=== PATIENT | male | born 1960 | race American Indian/Alaskan Native ===

== ENCOUNTER 2021-04-25 02:54 | Inpatient (IN) | payer OTHER ==
--- NOTE | 2021-04-25 04:04 | Emergency Department Report ---
HPI - General Time Seen by Provider: 04/25/21 03:23 - HPI HPI: Room 24 The patient is a 60-year-old male present with chief complaint of chest pain. Patient states over the past 3 days he has had intermittent substernal chest pain yesterday and the day before it resolved quickly. The patient states tonight the pain returned awakening him from sleep. Patient is sharp and co nstant in nature. Patient denies shortness of breath but admits to diaphoresis and nausea without vomiting. Patient currently gives his pain a score of 9- 10/10. Patient states his last stress test occurred over 10 years ago but has never had a cardiac catheterization. Patient denies any recent long car trip. 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-minutes ED Past Medical Hx - Past Medical History Hx Hypertension: Yes - Surgical History Additional Surgical History: Left eye pterygium - Family History Family history: no significant - Social History Smoking Status: Current Every Day Smoker (1/2 pack/day) Substance Use Type: None (Denies illicit drug use), Alcohol (Occasional) ED Review of Systems ROS: Stated complaint: CHEST PAINS Other details as noted in HPI Constitutional: diaphoresis Eyes: denies: eye pain ENT: denies: throat pain Respiratory: denies: shortness of breath Cardiovascular: chest pain Endocrine: no symptoms reported Gastrointestinal: nausea. denies: vomiting Genitourinary: denies: dysuria Musculoskeletal: denies: back pain Neurological: denies: headache Physical Exam - Physical Exam Physical Exam: GENERAL: The patient is well-developed well-nourished male lying on stretcher appearing to be in moderate discomfort. [] HEENT: Normocephalic. Atraumatic. Extraocular motions are intact. Patient has moist mucous membranes. NECK: Supple. Trachea mid CHEST/LUNGS: Clear to auscultation. There is no respiratory distress noted. HEART/CARDIOVASCULAR: Regular. There is no tachycardia. There is no gallop rub or murmur. ABDOMEN: Abdomen is soft, nontender. Patient has normal bowel sounds. There is no abdominal distention. SKIN: There is no rash. There is no edema. There is no diaphoresis. NEURO: The patient is awake, alert, and oriented. The patient is cooperative. The patient has no focal neurologic deficits. The patient has normal speech. GCS 15 MUSCULOSKELETAL: There is no evidence of acute injury. ED Course - Consultations Consultation #1: 04/25/21 04:19 EKG sent to and discussed with metalizing machine operator Dr. Beck- no STEMI ED Medical Decision Making - Lab Data Result diagrams: 04/25/21 04:25 04/25/21 04:25 Laboratory Tests 04/25/21 04/25/21 04/25/21 04:25 04:25 04:25 WBC 7.7 RBC 3.93 Hgb 13.0 Hct 38.3 MCV 98 H MCH 33 H MCHC 34 RDW 13.8 Plt Count 262 Lymph % (Auto) 25.1 [place] % (Auto) 7.6 H Eos % (Auto) 0.4 Baso % (Auto) 0.5 Lymph # (Auto) 1.9 [place] # (Auto) 0.6 Eos # (Auto) 0.0 Baso # (Auto) 0.0 Seg Neutrophils % 66.4 Seg Neutrophils # 5.1 PT 11.9 L INR 0.80 L Sodium 137 Potassium 4.4 Chloride 103.0 Carbon Dioxide 22 Anion Gap 16 BUN 10 Creatinine 0.8 Estimated GFR > 60 BUN/Creatinine Ratio 13 Glucose 180 H Calcium 8.8 Total Creatine Kinase 259 H CK-MB (CK-2) 9.8 H CK-MB (CK-2) Rel Index 3.7 Troponin T 0.125 H* Lipase 19 - EKG Data -: EKG Interpreted by Me EKG shows normal: sinus rhythm Rate: normal - EKG Data When compared to previous EKG there are: previous EKG unavailable Interpretation: nonspecific ST-T wave bryan - Radiology Data Radiology results: image reviewed (Chest x-ray) interpreted by me: Chest x-ray-no definite focal infiltrates, no pneumothorax - Differential Diagnosis ACS, pericarditis, GERD Critical care attestation.: If time is entered above; I have spent that time in minutes in the direct care of this critically ill patient, excluding procedure time. ED Disposition Clinical Impression: Chest pain, NSTEMI (non-ST elevated myocardial infarction) Disposition: ADMITTED INPATIENT Is pt being admited?: Yes Does the pt Need Aspirin: Yes Condition: Serious Instructions: Nonspecific Chest Pain, Adult Time of Disposition: 05:51 (Hospitalist notified (Dr Ruff)) Heart Score - HEART Score History: Moderately suspicious EKG: Non-specific Age: 45-65 Risk factors: > 3 risk factors or hx of atherosclerotic disease Troponin: > 3x normal limit HEART Score: 7 - EKG Read Time Time EKG Completed: 04:09 EKG Read Time: 04:18
--- NOTE | 2021-04-25 04:49 | XRay Report ---
CHEST 1 VIEW INDICATION / CLINICAL INFORMATION: chest pain. COMPARISON: None available. FINDINGS: SUPPORT DEVICES: None. HEART / MEDIASTINUM: No significant abnormality. LUNGS / PLEURA: No significant pulmonary or pleural abnormality. No pneumothorax. ADDITIONAL FINDINGS: No significant additional findings. IMPRESSION: 1. No active cardiopulmonary disease. Signer Name: Farooq Avery II, MD Signed: 04/25/2021 4:44 AM Workstation Name: [id number]
[2021-04-25 04:52] LABS: Basophils % (Auto) 0.5 % (0.0-1.8); Eosinophils % (Auto) 0.4 % (0.0-4.3); Hematocrit 38.3 % (35.5-45.6); Lymphocytes # (Auto) 1.9 K/mm3 (1.2-5.4); Lymphocytes % (Auto) 25.1 % (13.4-35.0); Mean Corpuscular HGB Conc 34 % (32-34); Mean Corpuscular Volume 98 fl (84-94); Monocytes # (Auto) 0.6 K/mm3 (0.0-0.8); Monocytes % (Auto) 7.6 % (0.0-7.3); Platelet Count 262 K/mm3 (140-440); Red Blood Count 3.93 M/mm3 (3.65-5.03); Red Cell Distribution Width 13.8 % (13.2-15.2)
[2021-04-25] MEDS ORDERED: NITROGLYCERIN 2% OINT 1 GM TP ONE (04:56)
[2021-04-25] MEDS ORDERED: ASPIRIN 325 MG TAB PO ONE (04:56)
[2021-04-25] MEDS ORDERED: fentaNYL 100 MCG/2 ML INJ IV ONE (04:56)
[2021-04-25] MEDS ORDERED: ONDANSETRON 4 MG/2 ML INJ IV ONE ×2 (04:56→16:33)
[2021-04-25] MEDS ORDERED: FAMOTIDINE 20 MG/2 ML INJ IV ONE (05:04)
[2021-04-25 05:07] LABS: INR 0.8 (0.87-1.13)
[2021-04-25 05:14] LABS: BUN/Creatinine Ratio 13; Blood Urea Nitrogen 10 mg/dL (9-20); Calcium 8.8 mg/dL (8.4-10.2); Hemolysis Index 17
[2021-04-25 05:43] LABS: Creatine Kinase MB 9.8 ng/mL (0.0-4.0)
[2021-04-25] MEDS ORDERED: HEPARIN 10,000 UNITS/10 ML VIAL IV ONE (05:45)
[2021-04-25] MEDS ORDERED: HEPARIN 10,000 UNITS/10 ML VIAL IV PRN (05:45)
[2021-04-25] MEDS ORDERED: cloNIDine 0.2 MG TAB PO ONE (05:54)
[2021-04-25 05:59] LABS: Chol/HDL Ratio 3.95 %; HDL Cholesterol 41 mg/dL (40-59); LDL Cholesterol,Direct 98 mg/dL (50-130)
[2021-04-25] MEDS ORDERED: HEPARIN/ 0.45% NACL DRIP 25,000 UNIT/500 ML BAG IV SCH (06:00)
[2021-04-25 06:03] LABS: Partial Thromboplastin Time 26.7 Sec. (24.2-36.6)
[2021-04-25] MEDS ORDERED: ONDANSETRON 4 MG/2 ML INJ IV PRN (11:00)
[2021-04-25] MEDS ORDERED: ACETAMINOPHEN 325 MG TAB PO PRN (11:00)
[2021-04-25] MEDS ORDERED: oxyCODONE /ACETAMINOPHEN 5-325MG TAB PO PRN (11:00)
[2021-04-25] MEDS ORDERED: HYDROmorphone 1 MG/1 ML INJ IV PRN (11:00)
[2021-04-25] MEDS ORDERED: SODIUM CHLORIDE 0.9% 500 ML 500 ML IV SCH (14:00)
--- NOTE | 2021-04-25 14:04 | Consultation ---
History of Present Illness Consult date: 04/25/21 Consult reason: chest pain History of present illness: The patient is a 60-year-old man with a history of hypertension, who admits to noncompliance with medical therapy and physician follow-ups. He presents to the emergency room today with chest pain. He describes substernal chest pain which has been persistent, and by his account associated with tenderness on palpation over the lower sternum. ECG in the emergency room was a sinus rhythm with nonspecific ST changes. Eventually, troponin levels measured with elevated 0.12. Cardiology consultation was requested. Patient denies any prior cardiac history. Habits include chronic tobacco abuse. His occupation is dedicated truck driver. Chest x-ray in the emergency room revealed borderline cardiomegaly, but clear lungs. Past History Past Medical History: hypertension Medications and Allergies Allergies Allergy/AdvReac Type Severity Reaction Status Date / Time No Known Allergies Allergy Verified 04/25/21 04:18 Home Medications Medication Instructions Recorded Confirmed Last Taken Type [place]-3 Fatty Acids/Fish Oil [Fish 1 each PO QDAY 04/25/21 04/25/21 04/24/21 History Oil 1,000 mg Capsule] Ubidecarenone/Vit E Acet [Co Q-10 1 each PO QDAY 04/25/21 04/25/21 04/23/21 History 100 mg Softgel] Active Meds: Active Medications Acetaminophen (Acetaminophen 325 Mg Tab) 650 mg PO Q4H PRN PRN Reason: Pain MILD(1-3)/Fever >100.5/CHEUNG Heparin Sodium (Porcine) (Heparin 10,000 Units/10 Ml Vial) 4,900 unit 40 unit/kg (4900 unit) IV Q6H PRN PRN Reason: Anti-Xa Assay<0.1 units/ml Hydromorphone HCl (Hydromorphone 1 Mg/1 Ml Inj) 0.5 mg IV Q3H PRN PRN Reason: Pain , Severe (7-10) Heparin Sodium/Sodium Chloride (Heparin/ 0.45% Nacl-25,000 Unit/500 Ml) 25,000 unit in 500 mls @ 20 mls/hr IV TITRATE ATIYA; Protocol Last Admin: 04/25/21 06:12 Dose: 1,000 units/hr, 20 mls/hr Ondansetron HCl (Ondansetron 4 Mg/2 Ml Inj) 4 mg IV Q8H PRN PRN Reason: Nausea And Vomiting Oxycodone/Acetaminophen (Oxycodone /Acetaminophen 5-325mg Tab) 1 tab PO Q6H PRN PRN Reason: Pain, Moderate (4-6) Last Admin: 04/25/21 13:39 Dose: 1 tab Sodium Chloride (Sodium Chloride 0.9% 10 Ml Flush Syringe) 10 ml IV BID ATIYA Last Admin: 04/25/21 13:39 Dose: 10 ml Sodium Chloride (Sodium Chloride 0.9% 10 Ml Flush Syringe) 10 ml IV PRN PRN PRN Reason: LINE FLUSH Review of Systems Cardiovascular: chest pain, no orthopnea, no palpitations, no rapid/irregular heart beat, no edema, no syncope, no lightheadedness, no shortness of breath Physical Examination Vital Signs Temp Pulse Resp BP Pulse Ox 98.1 F 78 14 182/100 98 04/25/21 04:32 04/25/21 04:32 04/25/21 04:32 04/25/21 04:32 04/25/21 04:32 General appearance: no acute distress HEENT: Positive: PERRL Neck: Positive: neck supple Cardiac: Positive: Reg Rate and Rhythm Lungs: Positive: Decreased Breath Sounds Neuro: Positive: Grossly Intact Abdomen: Positive: Soft Male genitourinary: Positive: deferred Skin: Positive: Clear Extremities: Absent: edema Results 04/25/21 04:25 04/25/21 04:25 Cardiac Enzymes 04/25/21 Range/Units 04:25 CK-MB (CK-2) 9.8 H (0.0-4.0) ng/mL Coagulation 04/25/21 Range/Units 04:25 PT 11.9 L (12.2-14.9) Sec. INR 0.80 L (0.87-1.13) APTT 26.7 (24.2-36.6) Sec. Lipids 04/25/21 Range/Units 04:25 Triglycerides 112 (2-149) mg/dL Cholesterol 162 (50-199) mg/dL HDL Cholesterol 41 (40-59) mg/dL Cholesterol/HDL Ratio 3.95 % CBC 04/25/21 Range/Units 04:25 WBC 7.7 (4.5-11.0) K/mm3 RBC 3.93 (3.65-5.03) M/mm3 Hgb 13.0 (11.8-15.2) gm/dl Hct 38.3 (35.5-45.6) % Plt Count 262 (140-440) K/mm3 Lymph # (Auto) 1.9 (1.2-5.4) K/mm3 [place] # (Auto) 0.6 (0.0-0.8) K/mm3 Eos # (Auto) 0.0 (0.0-0.4) K/mm3 Baso # (Auto) 0.0 (0.0-0.1) K/mm3 Comprehensive Metabolic Panel 04/25/21 Range/Units 04:25 Sodium 137 (137-145) mmol/L Potassium 4.4 (3.6-5.0) mmol/L Chloride 103.0 (98-107) mmol/L Carbon Dioxide 22 (22-30) mmol/L BUN 10 (9-20) mg/dL Creatinine 0.8 (0.8-1.3) mg/dL Glucose 180 H (75-100) mg/dL Calcium 8.8 (8.4-10.2) mg/dL EKG interpretations - Telemetry EKG Rhythm: Sinus Rhythm (With nonspecific ST changes) Assessment and Plan - Patient Problems (1) Chest pain Current Visit: Yes Status: Acute Plan to address problem: 60-year-old man who presents with somewhat atypical chest pain, but elevated cardiac isoenzymes, due to continued and recurrent chest pain, we will proceed with early and urgent cardiac catheterization. Risks and benefits were discussed with the patient and he consents to proceed.
[2021-04-25] MEDS ORDERED: HEPARIN/NS 5000 UNIT/500ML 1,000 ML IR ONE (14:26)
[2021-04-25] MEDS ORDERED: VERAPAMIL 5 MG/2 ML INJ ONE (14:26)
[2021-04-25] MEDS ORDERED: NITROGLYCERIN SYRINGE 0 ML ONE (14:26)
[2021-04-25] MEDS ORDERED: fentaNYL 100 MCG/2 ML INJ ONE (14:33)
[2021-04-25] MEDS ORDERED: MIDAZOLAM 2 MG/2 ML INJ ONE (14:33)
[2021-04-25] MEDS ORDERED: SODIUM CHLORIDE 0.9% 500 ML 500 ML ONE ×2 (14:34→16:39)
--- NOTE | 2021-04-25 14:50 | History and Physical Report ---
History of Present Illness Date of examination: 04/25/21 Date of admission: 04/25/21 10:46 Chief complaint: chest pain History of present illness: The patient is a 60-year-old male with h/o HTN but not on any medication present with chief complaint of chest pain. Patient states over the past 3 days he has had intermittent substernal chest pain which he believed to be acid reflux. He did not seek any medical attention till this morning he woke with the severe c hest pain and decided to check into ER. Pain is sharp and constant in nature. Patient denies shortness of breath but admits to diaphoresis and nausea without vomiting. Patient gave his pain a score of 9-10/10 during initial assessment. Patient states his last stress test occurred over 10 years ago but has never had a cardiac catheterization. Patient denies any recent long car trip. 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 He noted to have elevated troponin, initiated on heparin drip, cardiology consulted and patient will be taken for cardiac cath. Review of System: Constitutional: no fever, no chills, no weight loss Ears, eyes, nose, mouth and throat: no nasal congestion, no nasal discharge, no sinus pressure, no vision change, no red eye. Neck: No neck pain or rigidity. Cardiovascular: +ve chest pain, no orthopnea, no palpitations, no leg swelling Respiratory: No shortness of breath, no cough, no congestion, no wheezing Gastrointestinal: no abdominal pain, no nausea, no vomiting Genitourinary : no dysuria, no hematuria Musculoskeletal: no joint swelling or muscle ache Integumentary: no rash, no pruritis Neurological: no parathesias, no numbness, no tingling Endocrine: no cold or heat intolerance, no polyuria or polydipsia Hematologic/Lymphatic: no easy bruising, no easy bleeding, no gland swelling Allergic/Immunologic: no urticaria, no angioedema. Past History Past Medical History: hypertension Past Surgical History: No surgical history Social history: lives with family, smoking Family history: diabetes, hypertension Medications and Allergies Allergies Allergy/AdvReac Type Severity Reaction Status Date / Time No Known Allergies Allergy Verified 04/25/21 04:18 Home Medications Medication Instructions Recorded Confirmed Last Taken Type [place]-3 Fatty Acids/Fish Oil [Fish 1 each PO QDAY 04/25/21 04/25/21 04/24/21 History Oil 1,000 mg Capsule] Ubidecarenone/Vit E Acet [Co Q-10 1 each PO QDAY 04/25/21 04/25/21 04/23/21 History 100 mg Softgel] Active Meds: Active Medications Acetaminophen (Acetaminophen 325 Mg Tab) 650 mg PO Q4H PRN PRN Reason: Pain MILD(1-3)/Fever >100.5/CHEUNG Heparin Sodium (Porcine) (Heparin 10,000 Units/10 Ml Vial) 4,900 unit 40 unit/kg (4900 unit) IV Q6H PRN PRN Reason: Anti-Xa Assay<0.1 units/ml Hydromorphone HCl (Hydromorphone 1 Mg/1 Ml Inj) 0.5 mg IV Q3H PRN PRN Reason: Pain , Severe (7-10) Heparin Sodium/Sodium Chloride (Heparin/ 0.45% Nacl-25,000 Unit/500 Ml) 25,000 unit in 500 mls @ 20 mls/hr IV TITRATE ATIYA; Protocol Last Admin: 04/25/21 06:12 Dose: 1,000 units/hr, 20 mls/hr Sodium Chloride (Nacl 0.9% 500 Ml) 500 mls @ 50 mls/hr IV DIRECT ATIYA Stop: 04/25/21 23:59 Ondansetron HCl (Ondansetron 4 Mg/2 Ml Inj) 4 mg IV Q8H PRN PRN Reason: Nausea And Vomiting Oxycodone/Acetaminophen (Oxycodone /Acetaminophen 5-325mg Tab) 1 tab PO Q6H PRN PRN Reason: Pain, Moderate (4-6) Last Admin: 04/25/21 13:39 Dose: 1 tab Sodium Chloride (Sodium Chloride 0.9% 10 Ml Flush Syringe) 10 ml IV BID ATIYA Last Admin: 04/25/21 13:39 Dose: 10 ml Sodium Chloride (Sodium Chloride 0.9% 10 Ml Flush Syringe) 10 ml IV PRN PRN PRN Reason: LINE FLUSH Exam - Physical Exam Narrative exam: GENERAL: well-developed and morbidly obese AAM lying on bed appeared to be in no discomfort. HEENT: Normocephalic. Atraumatic. No conjunctival congestion or icterus. Patient has moist mucous membranes. NECK: Supple. Trachea midline. CHEST/LUNGS: Clear to auscultated bilaterally, breathing nonlabored. No wheezes crackles or rhonchi. HEART/CARDIOVASCULAR: Regular in rate and rhythm. S1 and S2 positive. ABDOMEN: Abdomen is soft, nontender. Patient has normal bowel sounds. SKIN: There is no rash. Warm and dry. NEURO: No focal motor deficit. Follows command. MUSCULOSKELETAL: No joint effusion or tenderness. EXTRIMITY: No edema, no cyanosis or clubbing. PSYCH: Cooperative. - Constitutional Vitals: Temp Pulse Resp BP Pulse Ox 98.3 F 70 20 146/77 97 04/25/21 09:57 04/25/21 14:00 04/25/21 14:00 04/25/21 14:00 04/25/21 14:00 HEART Score - HEART Score EKG: Non-specific Age: 45-65 Risk factors: > 3 risk factors or hx of atherosclerotic disease Troponin: Troponin T 0.125 ng/mL (0.00-0.029) H* 04/25/21 04:25 Troponin: > 3x normal limit Results - Labs CBC & Chem 7: 04/25/21 04:25 04/25/21 04:25 Labs: Abnormal lab results 04/25/21 04/25/21 04/25/21 Range/Units 04:25 04:25 04:25 MCV 98 H (84-94) fl MCH 33 H (28-32) pg [place] % (Auto) 7.6 H (0.0-7.3) % PT 11.9 L (12.2-14.9) Sec. INR 0.80 L (0.87-1.13) Heparin Anti-Xa Level (0.3-0.7) U.I./ml Glucose 180 H (75-100) mg/dL Total Creatine Kinase 259 H (55-170) units/L CK-MB (CK-2) 9.8 H (0.0-4.0) ng/mL Troponin T 0.125 H* (0.00-0.029) ng/mL 04/25/21 Range/Units 12:58 MCV (84-94) fl MCH (28-32) pg [place] % (Auto) (0.0-7.3) % PT (12.2-14.9) Sec. INR (0.87-1.13) Heparin Anti-Xa Level 0.22 L (0.3-0.7) U.I./ml Glucose (75-100) mg/dL Total Creatine Kinase (55-170) units/L CK-MB (CK-2) (0.0-4.0) ng/mL Troponin T (0.00-0.029) ng/mL Assessment and Plan --NSTEMI likely type 1 cont heparin drip, aspirin, statin serial EKG, cardiology consulted and planned for cardiac cath --Morbid obesity, dietary assessment following cardiac cath --Tobacco abuse, counselled --DVT Px, heparin
[2021-04-25] MEDS: LIDOCAINE (2%) 20 MG/1 ML VIAL 20 ML MDV INFILTRATI ONE ×2 (14:51→15:23)
[2021-04-25] MEDS: HEPARIN 10,000 UNITS/10 ML VIAL ONE ×3 (14:52→15:52)
[2021-04-25] MEDS ORDERED: HEPARIN/NS 5000 UNIT/500ML 500 ML IR ONE (15:13)
[2021-04-25] MEDS ORDERED: NITROGLYCERIN SYRINGE 3 ML ONE (15:38)
[2021-04-25] MEDS ORDERED: ALUM-MAG HYDROXIDE-SIMETHICONE 200-200-20MG/5ML ORAL LIQD 30 ML ONE (15:52)
[2021-04-25] MEDS ORDERED: CLOPIDOGREL 300 MG TAB ONE (15:52)
[2021-04-25] MEDS ORDERED: TIROFIBAN/NS 12,500 MCG/250 ML BAG IV ONE (15:52)
[2021-04-25] MEDS: NITROGLYCERIN DRIP 50 MG/250 ML BOTTLE ONE ×2 (16:01→16:10)
[2021-04-25] MEDS: TIROFIBAN/NS 12,500 MCG/250 ML BAG IV SCH ×2 (16:03→22:38)
[2021-04-25] MEDS ORDERED: ONDANSETRON 4 MG/2 ML INJ ONE (16:27)
[2021-04-25] MEDS ORDERED: hydrALAZINE 20 MG/1 ML INJ IV PRN (17:10)
[2021-04-25] MEDS ORDERED: NITROGLYCERIN DRIP 50 MG/250 ML BOTTLE IV SCH (18:00)
--- NOTE | 2021-04-25 18:41 | Event Note ---
Date: 04/25/21 Cardiac catheterization revealed 100% occlusion of the mid obtuse marginal branch of the circumflex artery, we performed successful coronary intervention with successful deployment of a 2.5 mm drug-eluting stent, excellent angiographic result and zoroastrianism of MAKEDA-3 flow. Patient will be treated with Aggrastat for 18 hours, and dual oral antiplatelet therapy with aspirin and Plavix.
[2021-04-25] MEDS ORDERED: ZOLPIDEM 5 MG TAB PO PRN (18:45)
[2021-04-25] MEDS ORDERED: SODIUM CHLORIDE 0.9% 1000 ML 1,000 ML IV SCH (18:45)
--- NOTE | 2021-04-25 19:27 | Cardiac Catherization Report ---
DATE OF SERVICE: 04/25/2021 CARDIAC CATHETERIZATION AND CORONARY ANGIOPLASTY REPORT REASON FOR PROCEDURE: The patient is a 60-year-old man who presented with chest pain. ECG in the Emergency Room showed nonspecific ST-segment changes, subsequent troponin was elevated, consistent with a non-ST elevation myocardial infarction. He was recommended for urgent cardiac catheterization. PROCEDURES: 1. Left heart catheterization. 2. Selective left and right coronary angiography. 3. Angioplasty and stenting of the mid obtuse marginal branch of the circumflex artery. 4. Sedation time start 14:49 hours and end 15:51 hours. DESCRIPTION OF PROCEDURE: The patient was prepped and draped in a sterile fashion after informed consent. The right radial cath site was first entered using the Seldinger technique followed by placement of a 6-Beninese hydrophilic sheath. Following this, we performed selective left and right coronary angiography using a #3.5 left Daryl and a #4 right Daryl. The angiograms were reviewed. CORONARY ANGIOGRAPHY: Left main coronary artery was short, free of significant disease. The left anterior descending artery and its diagonal branches contained diffuse mild atherosclerosis. There was mild ostial narrowing of the large first diagonal branch. A large ramus intermedius artery contained diffuse mild atherosclerosis. The circumflex artery was a relatively smaller caliber vessel, with mild luminal irregularities of the proximal AV groove segment. Following this, the mid obtuse marginal branch was completely occluded in its mid segment, just after its bifurcation into a smaller sub-branch. The occluded obtuse marginal appeared to be the infarct-related vessel. The right coronary artery was a large caliber, dominant vessel with mild diffuse atherosclerosis. CORONARY ANGIOPLASTY: After review of the angiograms, we recommended ad hoc coronary intervention to the mid obtuse marginal. We were unable to maintain optimal guide position from the right radial cath access due to tortuosity in the neck vessels and resultant difficult catheter manipulation. We then turned our attention to the right femoral artery, which was entered using Seldinger technique, followed by placement of a 6-Beninese sheath. We then selected a #3.5 EBU guiding catheter and advanced this to the left coronary ostium. A 0.014 inch Car Customizer 50 guidewire was then directed into the circumflex system, successfully across the lesional segment. After wire placement into the obtuse marginal, we performed predilatation balloon angioplasty using a 2.5 mm balloon. We then deployed a 2.5 x 18 mm Resolute drug-eluting stent, covering the entire lesional segment and deploying the stent to optimal pressures. Following this, the wires were removed. Post-intervention angiograms revealed an excellent angiographic result, zero residual stenosis, jain of MAKEDA-3 flow down the mid obtuse marginal. There was no compromise of the bifurcation of the obtuse marginal. The patient tolerated the procedure well and there were no complications. CONCLUSION: 1. The patient was admitted with non-ST elevation myocardial infarction. 2. The cardiac catheterization revealed acute occlusion of the mid obtuse marginal branch of the circumflex artery. 3. Successful angioplasty and stenting with deployment of a 2.5 x 18 mm drug-eluting stent, excellent angiographic result and jain of MAKEDA-3 flow. RECOMMENDATIONS: The patient will be admitted for post-intervention medical management. An echocardiogram will be ordered for left ventricular function and valvular function assessment. TID: [id number] RECEIPT: [id number] CA/SILVERIO MTDD
[2021-04-25] MEDS: LOSARTAN 50 MG TAB PO SCH (21:12)
[2021-04-25] MEDS: DOCUSATE SODIUM 100 MG CAP PO SCH (21:13)
[2021-04-25] MEDS: METOPROLOL TARTRATE 50 MG TAB PO SCH (21:13)
[2021-04-26 07:51] LABS: Basophils % (Auto) 0.3 % (0.0-1.8); Eosinophils % (Auto) 0.4 % (0.0-4.3); Hematocrit 35.2 % (35.5-45.6); Lymphocytes # (Auto) 2.4 K/mm3 (1.2-5.4); Lymphocytes % (Auto) 28.6 % (13.4-35.0); Mean Corpuscular HGB Conc 34 % (32-34); Mean Corpuscular Volume 98 fl (84-94); Monocytes % (Auto) 11.4 % (0.0-7.3); Platelet Count 257 K/mm3 (140-440)
[2021-04-26 08:08] LABS: Blood Urea Nitrogen 8 mg/dL (9-20); Calcium 8.8 mg/dL (8.4-10.2); Hemolysis Index 1
[2021-04-26 08:15] LABS: BUN/Creatinine Ratio 11
[2021-04-26] MEDS ORDERED: ASPIRIN EC 325 MG TAB PO SCH (10:00)
[2021-04-26] MEDS ORDERED: CLOPIDOGREL 75 MG TAB PO SCH (10:00)
[2021-04-26] MEDS: DOCUSATE SODIUM 100 MG CAP PO SCH (10:03)
[2021-04-26] MEDS: LOSARTAN 50 MG TAB PO SCH (10:03)
[2021-04-26] MEDS: METOPROLOL TARTRATE 50 MG TAB PO SCH (10:03)
--- NOTE | 2021-04-26 10:22 | Electrocardiograph Report ---
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
--- NOTE | 2021-04-26 10:27 | Electrocardiograph Report ---
[facility], [place] Test Date: 2021-04-25 Test Time: 17:02:11 Pat Name: ANA CRISTINA KHAN Department: Room: A260 1 Gender: M Auto Painter Helper: KATIE GLORIA : 1960 Requested By: CLAUDY LITTLE Order Number: [id number] Reading MD: Adeel Harvey Measurements Intervals [place] Rate: 70 P: 66 IN: 167 QRS: 29 QRSD: 96 T: 27 QT: 392 QTc: 423 Interpretive Statements Sinus rhythm Compared to ECG 04/25/2021 04:09:04 ST (T wave) deviation no longer present Myocardial infarct finding no longer present Electronically Signed On 04-26-2021 10:27:08 EST by Adeel Harvey
--- NOTE | 2021-04-26 10:39 | Consultation ---
History of Present Illness - Reason for Consult Consult date: 04/26/21 NSTEMI - History of Present Illness 60 male with chest pain, found to have NSTEMI. Past History Past Medical History: hypertension Past Surgical History: No surgical history Social history: lives with family, smoking Family history: diabetes, hypertension Medications and Allergies Allergies Allergy/AdvReac Type Severity Reaction Status Date / Time No Known Allergies Allergy Verified 04/25/21 04:18 Home Medications Medication Instructions Recorded Confirmed Last Taken Type [place]-3 Fatty Acids/Fish Oil [Fish 1 each PO QDAY 04/25/21 04/25/21 04/24/21 History Oil 1,000 mg Capsule] Ubidecarenone/Vit E Acet [Co Q-10 1 each PO QDAY 04/25/21 04/25/21 04/23/21 History 100 mg Softgel] Active Meds: Active Medications Acetaminophen (Acetaminophen 325 Mg Tab) 650 mg PO Q4H PRN PRN Reason: Pain MILD(1-3)/Fever >100.5/CHEUNG Aspirin (Aspirin Ec 325 Mg Tab) 325 mg PO QDAY [facility] Atorvastatin Calcium (Atorvastatin 40 Mg Tab) 40 mg PO QHS [facility] Last Admin: 04/25/21 21:13 Dose: 40 mg Clopidogrel Bisulfate (Clopidogrel 75 Mg Tab) 75 mg PO QDAY [facility] Last Admin: 04/26/21 10:03 Dose: 75 mg Docusate Sodium (Docusate Sodium 100 Mg Cap) 100 mg PO BID [facility] Last Admin: 04/26/21 10:03 Dose: 100 mg Hydralazine HCl (Hydralazine 20 Mg/1 Ml Inj) 10 mg IV Q4HR PRN PRN Reason: Hypertension Last Admin: 04/26/21 04:25 Dose: 10 mg Hydromorphone HCl (Hydromorphone 1 Mg/1 Ml Inj) 0.5 mg IV Q3H PRN PRN Reason: Pain , Severe (7-10) Nitroglycerin/Dextrose (Tridil Drip 50mg/250ml) 50 mg in 250 mls @ 6 mls/hr IV TITR [facility]; Protocol Losartan Potassium (Losartan 50 Mg Tab) 50 mg PO QDAY [facility] Last Admin: 04/26/21 10:03 Dose: 50 mg Metoprolol Tartrate (Metoprolol Tartrate 50 Mg Tab) 50 mg PO BID [facility] Last Admin: 04/26/21 10:03 Dose: 50 mg Ondansetron HCl (Ondansetron 4 Mg/2 Ml Inj) 4 mg IV Q8H PRN PRN Reason: Nausea And Vomiting Oxycodone/Acetaminophen (Oxycodone /Acetaminophen 5-325mg Tab) 1 tab PO Q6H PRN PRN Reason: Pain, Moderate (4-6) Last Admin: 04/25/21 13:39 Dose: 1 tab Sodium Chloride (Sodium Chloride 0.9% 10 Ml Flush Syringe) 10 ml IV BID ATIYA Last Admin: 04/25/21 21:14 Dose: 10 ml Sodium Chloride (Sodium Chloride 0.9% 10 Ml Flush Syringe) 10 ml IV PRN PRN PRN Reason: LINE FLUSH Zolpidem Tartrate (Zolpidem 5 Mg Tab) 5 mg PO QHS PRN PRN Reason: Sleep Exam - Constitutional Vitals: Temp Pulse Resp BP Pulse Ox 99.1 F 97 H 17 129/72 91 04/26/21 08:00 04/26/21 10:03 04/26/21 09:30 04/26/21 10:03 04/26/21 09:30 Results - Labs CBC & Chem 7: 04/26/21 07:15 04/26/21 07:15 Labs: Abnormal lab results 04/25/21 04/26/21 04/26/21 Range/Units 12:58 00:51 05:59 RBC (3.65-5.03) M/mm3 Hct (35.5-45.6) % MCV (84-94) fl MCH (28-32) pg [place] % (Auto) (0.0-7.3) % [place] # (Auto) (0.0-0.8) K/mm3 Heparin Anti-Xa Level 0.22 L (0.3-0.7) U.I./ml BUN (9-20) mg/dL Creatinine (0.8-1.3) mg/dL Glucose (75-100) mg/dL POC Glucose 153 H 132 H (70-105) mg/dL Troponin T (0.00-0.029) ng/mL 04/26/21 04/26/21 Range/Units 07:15 07:15 RBC 3.60 L (3.65-5.03) M/mm3 Hct 35.2 L (35.5-45.6) % MCV 98 H (84-94) fl MCH 33 H (28-32) pg [place] % (Auto) 11.4 H (0.0-7.3) % [place] # (Auto) 1.0 H (0.0-0.8) K/mm3 Heparin Anti-Xa Level (0.3-0.7) U.I./ml BUN 8 L (9-20) mg/dL Creatinine 0.7 L (0.8-1.3) mg/dL Glucose 125 H (75-100) mg/dL POC Glucose (70-105) mg/dL Troponin T 2.180 H* D (0.00-0.029) ng/mL
[2021-04-26 11:11] VITALS: BP 134/80
--- NOTE | 2021-04-26 11:59 | Discharge Summary ---
Providers - Providers Date of Admission: 04/25/21 10:46 Date of discharge: 04/26/21 Attending physician: JHONY GONG MD 04/25/21 Consult to Cardiac Rehabilitation [CONS] Routine Reason For Exam: post pci 04/25/21 10:45 Consult to Physician [CONS] Routine Comment: Consulting Provider: CLAUDY LITTLE Physician Instructions: Reason For Exam: chest pain 04/25/21 16:53 Consult to Physician [CONS] Routine Comment: Consulting Provider: JOSH ELLER Physician Instructions: Reason For Exam: ICU transfer Primary care physician: KLAUDIA CLAYTON Hospitalization Condition: Stable Hospital course: This is a 60-year-old male with HTN, morbid obesity and 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 Per the patient he had a stress test over 10 years ago but never had a cardiac catheterization. Work- up emergency department revealed elevated troponin and ECG showed sinus rhythm with nonspecific ST changes. Patient was initiated heparin drip with consult to cardiology and taken to the [facility]. Cardiac catheterization revealed 100% occlusion of the mid obtuse marginal branch of the circumflex artery and had left heart cath with angioplasty and successful deployment of drug-eluting stent. Patient was admitted to the ICU post cardiac cath on Aggrastat drip. Patient will be discharged on aspirin, Lipitor, Plavix , Cozaar and metoprolol. Patient will need to follow-up with cardiology and PCP within 1 to 2 weeks of discharge. Strongly encouraged nicotine cessation and lifestyle modifications. Assessment and plan: NSTEMI -Cardiology consulted, patient recommendations -s/p cardiac catheterization which revealed 100% occlusion of the mid obtuse marginal branch of the circumflex artery -s/p PCI with deployment of drug-eluting stent -Will be discharged on Plavix, aspirin, Cozaar and metoprolol -We will need to follow-up with cardiology within 1 to 2 weeks of discharge HTN -Will be discharged on Cozaar metoprolol -Follow-up with cardiology within 1 to 2 weeks of discharge -Blood pressure monitor per PCP -Continue cardiac diet Morbid obesity -Continue cardiac diet -Encouraged lifestyle modifications Current tobacco abuse -Tobacco cessation counseling completed ROSE -Per patient he had sleep study and was given a CPAP however patient does not use it -Follow up with PCP or pulmonology outpatient Disposition: HOME / SELF CARE / HOMELESS Final Discharge Diagnosis (Prints w/discharge instructions): NSTEMI, s/p cardiac catheterization with angioplasty and deployment of drug-eluting stent, history of hypertension/morbid obesity/current nicotine abuse Time spent for discharge: 60 Core Measure Documentation - Palliative Care Palliative Care/ Comfort Measures: Not Applicable - Core Measures Any of the following diagnoses?: acute NM - Acute NM Discharge Requirements Aspirin at discharge: Yes SHAQ/ARB for LVSD if EF <40%: Yes Beta aurora at discharge: Yes Statin for LDL = or >100 mg/dl on DC: Yes Exam - Constitutional Vitals: Temp Pulse Resp BP Pulse Ox 99.1 F 73 17 134/80 97 04/26/21 08:00 04/26/21 11:00 04/26/21 11:00 04/26/21 11:00 04/26/21 11:00 General appearance: Present: no acute distress - EENT Eyes: Present: PERRL, EOM intact ENT: hearing intact, clear oral mucosa - Neck Neck: Present: supple, normal ROM - Respiratory Respiratory effort: normal Respiratory: bilateral: diminished - Cardiovascular Rhythm: regular Heart Sounds: Present: S1 & S2. Absent: systolic murmur, diastolic murmur - Extremities Extremities: no ischemia, pulses intact, pulses symmetrical, No edema, normal temperature, normal color, Full ROM Peripheral Pulses: within normal limits - Abdominal General gastrointestinal: Present: soft, non-tender, non-distended, normal bowel sounds - Integumentary Integumentary: Present: warm, dry - Musculoskeletal Musculoskeletal: strength equal bilaterally - Psychiatric Psychiatric: appropriate mood/affect, cooperative - Neurologic Neurologic: CNII-XII intact, no focal deficits, moves all extremities - Allied Health Allied health notes reviewed: nursing, RT, social work Plan Activity: advance as tolerated Diet: low fat, low cholesterol, low salt Wound: per your surgeon's advice Special Instructions: record daily weights, record daily BP diary, smoking cessation Follow up with: CLAUDY LITTLE MD [Staff Physician] - 7 Days KLAUDIA CLAYTON MD [Primary Care Provider] - 7 Days JOSH ELLER MD [Staff Physician] - 7 Days Prescriptions: AtorvaSTATin [Lipitor] 40 mg PO QHS #30 tablet Losartan [Cozaar] 50 mg PO QDAY #30 tablet Aspirin EC [Ecotrin] 325 mg PO QDAY #30 tablet Metoprolol [Lopressor TAB] 50 mg PO BID #60 tablet Clopidogrel [Plavix] 75 mg PO QDAY #30 tablet
--- NOTE | 2021-04-26 12:58 | Progress Note ---
Assessment and Plan - Patient Problems (1) Chest pain Status: Acute Plan to address problem: 60-year-old man who presents with acute non-STEMI. Early and urgent cardiac catheterization revealed 100% occlusion of the mid obtuse marginal, treated successfully with a 2.5 mm drug-eluting stent, method[facility] of [place]KED[place]-3 flow and excellent angiographic result. Patient is stable for discharge on guideline directed medical therapy including aspirin and Plavix. Subjective Date of service: 04/26/21 Principal diagnosis: Non-STEMI Interval history: Patient is comfortable, looks and feels better, no chest pain, no acute distress. His right radial and right groin cath sites are well-healed, no hematoma or significant ecchymosis. Pulses are normal. Objective Vital Signs Temp Pulse Pulse Resp BP Pulse Ox 04/26/21 11:00 73 17 134/80 97 04/26/21 10:51 73 11 L 140/71 98 04/26/21 10:41 78 16 140/71 97 04/26/21 10:30 77 21 140/71 97 04/26/21 10:21 82 23 129/72 97 04/26/21 10:11 95 H 17 129/72 96 04/26/21 10:03 97 H 129/72 04/26/21 10:01 97 H 17 199/119 97 04/26/21 09:51 77 22 200/91 98 04/26/21 09:41 76 22 200/91 97 04/26/21 09:30 73 17 200/91 91 04/26/21 09:21 77 17 197/92 98 04/26/21 09:11 74 20 197/92 97 04/26/21 09:01 85 20 197/92 94 04/26/21 08:51 73 22 144/63 98 04/26/21 08:41 86 18 144/63 97 04/26/21 08:30 76 22 144/63 97 04/26/21 08:27 100 04/26/21 08:21 100 H 24 146/67 97 04/26/21 08:11 98 H 24 146/67 94 04/26/21 08:00 99.1 F 99 H 16 146/67 94 04/26/21 07:51 158/106 96 04/26/21 07:41 124 H 19 158/106 97 04/26/21 07:31 145 H 21 158/106 94 04/26/21 07:21 86 16 136/73 97 04/26/21 07:11 75 22 136/73 96 04/26/21 07:00 83 18 136/73 96 04/26/21 06:51 92 H 18 117/67 97 04/26/21 06:41 83 20 117/67 97 04/26/21 06:30 85 23 117/67 96 04/26/21 06:21 70 21 124/76 97 04/26/21 06:11 85 19 124/76 97 04/26/21 06:00 85 12 124/76 96 04/26/21 05:51 83 15 137/67 96 04/26/21 05:41 70 17 137/67 95 04/26/21 05:30 79 23 137/67 94 04/26/21 05:21 73 18 126/68 98 04/26/21 05:11 71 13 126/68 96 04/26/21 05:00 73 13 126/68 95 04/26/21 04:51 79 11 L 123/64 97 04/26/21 04:41 76 19 123/64 97 04/26/21 04:31 82 20 182/161 98 04/26/21 04:25 98 H 188/99 04/26/21 04:21 79 15 188/99 97 04/26/21 04:11 69 27 H 186/95 97 04/26/21 04:00 98.6 F 66 68 18 186/95 85 04/26/21 03:51 65 20 145/73 98 04/26/21 03:41 81 19 145/73 99 04/26/21 03:30 66 18 145/73 93 04/26/21 03:21 69 21 140/73 98 04/26/21 03:11 71 21 140/73 98 04/26/21 03:00 67 16 140/73 95 04/26/21 02:51 78 15 158/79 98 08 02:41 83 109/52 04/26/21 02:11 76 21 109/52 96 04/26/21 02:00 72 15 109/52 98 04/26/21 01:51 73 22 116/59 95 04/26/21 01:41 66 17 116/59 98 04/26/21 01:30 64 19 116/59 92 04/26/21 01:21 75 17 124/63 96 04/26/21 01:11 66 21 124/63 95 04/26/21 01:01 69 22 124/63 97 04/26/21 00:51 82 15 124/63 92 04/26/21 00:41 72 21 124/63 92 04/26/21 00:31 75 15 124/63 94 04/26/21 00:21 67 17 124/74 97 04/26/21 00:13 68 22 124/74 95 04/26/21 00:11 67 22 124/74 93 04/26/21 00:01 76 19 115/67 97 04/26/21 00:00 99.6 F 67 68 22 95 04/25/21 23:51 65 19 115/67 100 04/25/21 23:41 77 14 115/67 99 04/25/21 23:31 81 17 115/67 98 04/25/21 23:21 64 14 115/67 87 04/25/21 23:11 64 22 115/67 96 04/25/21 23:00 66 21 115/67 98 04/25/21 22:51 70 23 120/77 97 04/25/21 22:41 65 17 120/77 100 04/25/21 22:31 84 10 L 120/77 98 04/25/21 22:21 86 14 138/76 98 04/25/21 22:11 97 H 13 138/76 97 04/25/21 22:00 70 19 138/76 99 04/25/21 21:51 81 18 132/83 98 04/25/21 21:41 75 18 132/83 98 04/25/21 21:30 82 10 L 132/83 99 04/25/21 21:21 76 11 L 99 04/25/21 21:15 81 16 99 04/25/21 21:13 79 134/77 04/25/21 21:12 79 134/77 04/25/21 20:45 99.8 F H 04/25/21 20:00 80 69 15 99 04/25/21 19:40 100 04/25/21 18:15 76 16 132/64 97 04/25/21 17:00 76 14 150/85 97 04/25/21 16:45 82 13 131/86 96 04/25/21 16:39 75 17 126/87 97 04/25/21 16:28 98.2 F 86 15 125/77 97 04/25/21 14:00 70 20 146/77 97 04/25/21 13:46 85 15 156/88 98 04/25/21 13:30 68 18 156/88 99 04/25/21 13:16 74 13 200/104 98 04/25/21 13:00 74 11 L 200/104 97 - Physical Examination General: Appears Well, No Apparent Distress HEENT: Positive: PERRL Neck: Positive: neck supple Cardiac: Positive: Reg Rate and Rhythm Lungs: Positive: clear to auscultation Neuro: Positive: Grossly Intact Abdomen: Positive: Soft Skin: Positive: Clear Extremities: Absent: edema - Labs and Meds CBC 04/26/21 Range/Units 07:15 WBC 8.3 (4.5-11.0) K/mm3 RBC 3.60 L (3.65-5.03) M/mm3 Hgb 12.0 (11.8-15.2) gm/dl Hct 35.2 L (35.5-45.6) % Plt Count 257 (140-440) K/mm3 Lymph # (Auto) 2.4 (1.2-5.4) K/mm3 [place] # (Auto) 1.0 H (0.0-0.8) K/mm3 Eos # (Auto) 0.0 (0.0-0.4) K/mm3 Baso # (Auto) 0.0 (0.0-0.1) K/mm3 Comprehensive Metabolic Panel 04/26/21 Range/Units 07:15 Sodium 138 (137-145) mmol/L Potassium 3.8 (3.6-5.0) mmol/L Chloride 104.1 (98-107) mmol/L Carbon Dioxide 22 (22-30) mmol/L BUN 8 L (9-20) mg/dL Creatinine 0.7 L (0.8-1.3) mg/dL Glucose 125 H (75-100) mg/dL Calcium 8.8 (8.4-10.2) mg/dL
== END 2021-04-26 12:06 | disposition home or self-care (01) | DRG 247 ==
LOC: ED 02:54 → 4A 10:46 → CC1 16:32
PROVIDERS: ADMIT Internal Medicine; ATTEND Internal Medicine
PROC: 027034Z Dilation of Coronary Artery, One Artery with Drug-eluting Intraluminal Device, Percutaneous Approach (ICD-10-PCS; principal; 2021-04-25)
PROC: 4A023N7 Measurement of Cardiac Sampling and Pressure, Left Heart, Percutaneous Approach (ICD-10-PCS; 2021-04-25)
PROC: B2111ZZ Fluoroscopy of Multiple Coronary Arteries using Low Osmolar Contrast (ICD-10-PCS; 2021-04-25)
PROC: B2151ZZ Fluoroscopy of Left Heart using Low Osmolar Contrast (ICD-10-PCS; 2021-04-25)
DX: I21.4 Non-ST elevation (NSTEMI) myocardial infarction (principal); I10 Essential (primary) hypertension; F17.200 Nicotine dependence, unspecified, uncomplicated; E66.01 Morbid (severe) obesity due to excess calories; Z68.38 Body mass index [BMI] 38.0-38.9, adult; Z71.6 Tobacco abuse counseling; Z83.3 Family history of diabetes mellitus; Z82.49 Family history of ischemic heart disease and other diseases of the circulatory system
CPT/HCPCS: 36415; 71045; 80048; 80061; 82550; 82553; 82962; 83690; 84484; 85025; 85520; 85610; 85730; 92928; 93005; 93306; 93458; G0378; J1815; J3490; C1725; C1769; C1874; C1887; C1894; C8929; C9600; J0360; J1644; J2250; J2405; J3010; J3246; J7040; Q9967

== ENCOUNTER 2021-06-02 08:55 | Outpatient (CLI) | payer OTHER ==
[2021-06-02 09:28] LABS: Bilirubin,Urine NEG (Negative); Blood,Urine NEG (Negative); Color,Urine Yellow (Yellow); Mucus,Urine FEW /HPF; Protein,Urine <15 mg/dL mg/dL (Negative); Urobilinogen,Urine < 2.0 mg/dL (<2.0)
[2021-06-02 09:56] LABS: Basophils % (Auto) 0.5 % (0.0-1.8); Eosinophils # (Auto) 0.1 K/mm3 (0.0-0.4); Eosinophils % (Auto) 1.3 % (0.0-4.3); Hematocrit 38.4 % (35.5-45.6); Hemoglobin 12.5 gm/dl (11.8-15.2); Lymphocytes # (Auto) 2.1 K/mm3 (1.2-5.4); Lymphocytes % (Auto) 36.1 % (13.4-35.0); Mean Corpuscular HGB Conc 33 % (32-34); Mean Corpuscular Volume 98 fl (84-94); Monocytes # (Auto) 0.7 K/mm3 (0.0-0.8); Monocytes % (Auto) 12.1 % (0.0-7.3); Platelet Count 263 K/mm3 (140-440); Red Blood Count 3.91 M/mm3 (3.65-5.03); Red Cell Distribution Width 13.3 % (13.2-15.2)
[2021-06-02 10:13] LABS: Alanine Aminotransferase 18 units/L (7-56); Albumin 3.9 g/dL (3.9-5); BUN/Creatinine Ratio 11; Blood Urea Nitrogen 9 mg/dL (9-20); Calcium 8.7 mg/dL (8.4-10.2); Chol/HDL Ratio 4.13 %; HDL Cholesterol 36 mg/dL (40-59); Hemolysis Index 3; LDL Cholesterol,Direct 83 mg/dL (50-130)
== END 2021-06-02 08:56 | disposition home or self-care (01) ==
LOC: LAB 08:55
PROVIDERS: ATTEND Internal Medicine
DX: Z00.00 Encounter for general adult medical examination without abnormal findings (principal); I10 Essential (primary) hypertension; E78.5 Hyperlipidemia, unspecified; R53.83 Other fatigue; R73.9 Hyperglycemia, unspecified; E55.9 Vitamin D deficiency, unspecified; R39.11 Hesitancy of micturition
CPT/HCPCS: 36415; 80053; 80061; 81001; 82306; 83036; 84153; 84443; 85025

== ENCOUNTER 2021-10-06 09:01 | Outpatient (CLI) | payer OTHER ==
[2021-10-06 12:58] LABS: Chol/HDL Ratio 4.17 %
== END 2021-10-06 09:02 | disposition home or self-care (01) ==
LOC: LABHHL 09:01
PROVIDERS: ATTEND Internal Medicine
DX: E78.5 Hyperlipidemia, unspecified (principal); E11.8 Type 2 diabetes mellitus with unspecified complications
CPT/HCPCS: 36415; 80061; 83036